=== PATIENT | male | born 1935 | race Caucasian/White ===

== ENCOUNTER → 2017-07-28 11:19 | Outpatient (CLI) | payer MEDICARE, SELFPAY ==
--- NOTE | 2017-07-28 11:27 | RAD_ITS ---
STUDY: X-RAY - LUMBAR SPINE REASON FOR EXAM: Male, 82 years old. Piriformis syndrome TECHNIQUE: 5 view(s) of the lumbar spine were obtained. COMPARISON: None FINDINGS: Alignment is normal. Diffuse degenerative disc disease and spondylosis. Diffuse facet disease. No compression fractures are seen. Vascular calcifications. RAD/L/S Spine Min 4 Views IMPRESSION: Diffuse degenerative disc and facet disease with normal alignment and no compression deformity. Electronically Signed: Jesus Bee MD at 8:51 EDT Tel , Service support ,
== END ==
PROVIDERS: Family Provider Family Medicine; PCP Family Medicine; Visit Provider Family Medicine
DX: G57.01 Lesion of sciatic nerve, right lower limb (principal)
CPT/HCPCS: 72110